=== PATIENT | male | born 1980 | race Caucasian/White ===

== ENCOUNTER → 2016-12-09 | Outpatient (CLI) | payer OTHER, SELFPAY | END | disposition disaster alternative care site (69) | LOC: GRAD 12:59 | DX: N13.5 Crossing vessel and stricture of ureter without hydronephrosis (principal); N28.89 Other specified disorders of kidney and ureter; R93.421 Abnormal radiologic findings on diagnostic imaging of right kidney | CPT/HCPCS: A9562; J1940 ==

== ENCOUNTER → 2017-01-02 | Outpatient (CLI) | payer OTHER | END | disposition disaster alternative care site (69) | LOC: GRAD 12:05 | DX: R10.9 Unspecified abdominal pain (principal); Z98.890 Other specified postprocedural states | CPT/HCPCS: Q9967 ==

== ENCOUNTER → 2017-04-14 | Outpatient (CLI) | payer OTHER | END | disposition disaster alternative care site (69) | LOC: GRAD 12:41 | DX: Z48.816 Encounter for surgical aftercare following surgery on the genitourinary system (principal) ==